=== PATIENT | female | born 2000 | race Caucasian/White ===

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

== ENCOUNTER 2019-10-26 20:22 | Emergency (ER) | payer SELFPAY ==
[2019-10-26 21:11] VITALS: BP 97/74
--- NOTE | 2019-10-26 21:29 | ER Document Report ---
HPI - HPI Time Seen by Provider: 10/26/19 21:07 Pain Level: 1 Context: Patient is a 19-year-old female that comes emergency department for chief complaint of COVID-19 exposure and a sore throat. She states that she was told today by her child's culinary chef that they tested positive for COVID-19, reportedly they were positive a couple of days ago and were tested a few days before that. Patient denies fever, cough, shortness of breath, congestion but she has started noticing an increasingly sore throat today. She denies abdominal pain, , or any other complaints. She takes no daily medications. She denies smoking, alcohol, recreational drugs. She denies any past medical history. - CONSTITUTIONAL Constitutional: DENIES: Fever, Chills - REPRODUCTIVE Reproductive: DENIES: : Past Medical History - General Information source: Patient - Social History Smoking Status: Never Smoker Frequency of alcohol use: None Drug Abuse: None Lives with: Family Family History: Reviewed & Not Pertinent Patient has homicidal ideation: No Surgical Hx: Negative - Immunizations Immunizations up to date: Yes Hx Diphtheria, Pertussis, Tetanus Vaccination: Yes Vertical Provider Document - CONSTITUTIONAL General Appearance: WD/WN, No Apparent Distress - INFECTION CONTROL TRAVEL OUTSIDE OF THE [place] IN LAST 30 DAYS: No - HEENT HEENT: Atraumatic, Normocephalic. negative: Normal ENT Exam - Normal ears, eyes, sinus exams. Pharyngeal erythema with tonsillitis slightly worse on the left, no evidence of peritonsillar abscess, patent airway, normal uvula. - NECK Neck: Lymphadenopathy-Left, Lymphadenopathy-Right - RESPIRATORY Respiratory: Breath Sounds Normal, No Respiratory Distress. negative: Wheezing - CARDIOVASCULAR Cardiovascular: Regular Rate, Regular Rhythm. negative: Tachycardia - GI/ABDOMEN Gastrointestinal: Abdomen Soft, Abdomen Non-Tender - BACK Back: Normal Inspection - MUSCULOSKELETAL/EXTREMETIES Musculoskeletal/Extremeties: MAEW, FROM, Non-Tender - NEURO Level of Consciousness: Awake, Alert, Appropriate Motor/Sensory: No Motor Deficit, No Sensory Deficit - DERM Integumentary: Warm, Dry, No Rash Course - Re-evaluation Re-evalutation: Blood pressure is 97 systolic, patient is very slim, I suspect this is normal for her. She is alert, talkative, well-appearing. She does have tonsillitis w orse on the left, anterior cervical adenopathy, however no other concerning findings. No evidence of peritonsillar abscess, no submandibular swelling, no nuchal rigidity, clear lungs, soft abdomen, unremarkable vital signs. Patient concerned of exposure to COVID-19, she was tested, strep test was performed and negative. Discussed with patient. Provided with Decadron for her lymphadenopathy and tonsillitis, culture is pending. Discussed details, quarantine, follow-up, return precautions. Patient states appreciation and agreement. Stable and well-appearing at time of discharge. - Vital Signs Vital signs: Temp Pulse Resp BP Pulse Ox 97.9 F 86 15 97/74 L 97 10/26/19 21:10 10/26/19 21:10 10/26/19 21:10 10/26/19 21:10 10/26/19 21:10 Discharge - Discharge Clinical Impression: Tonsillitis, Person under investigation for COVID-19 Pharyngitis Qualifiers: Pharyngitis/tonsillitis etiology: unspecified etiology Qualified Code(s): J02.9 - Acute pharyngitis, unspecified Condition: Stable Disposition: HOME, SELF-CARE Additional Instructions: Your strep test is negative. You most likely have a viral illness. You have been tested for COVID-19, you will be contacted with the results, please quarantine awaiting your results. You have been treated with Decadron to help with your symptoms, Tylenol, ibuprofen, etc. [id number] medications can also help. Drink plenty fluids and rest. Return for any concerning symptoms including difficulty breathing, vomiting, chest pain, spiking fevers, or any other concerning symptoms. As a person under investigation for COVID-19, the [place] Department of Health and Human Services (division on public health) advises you to adhere to the following guidance until your test results are reported to you. If your test result is positive, you will receive additional information from your provider and your local health department at that time. Remain at home until you are cleared by the health provider or public health authorities. Keep a log of visitors to your home, notify any visitors to your home of your isolation status. If you plan to move to a new address or leave the [facility], notify the local health department in your County. Call your Doctor or seek care if you have an urgent medical need. Before seeking medical care, call him to get instructions from the provider before arriving at the medical office, clinic, or hospital. Notify them that you are being tested for the virus (COVID-19) so that arrangements can be made, as necessary, to prevent transmission to others in the healthcare setting. Next, notify the local health department in your county. If a medical emergency arises and you need to call 911, inform the first responders that you are being tested for the virus that causes COVID-19. Next, notify the local health department in your county. Forms: Return to Work
[2019-10-26] MEDS ORDERED: DEXAMETHASONE SOD PHOS INJ 10 MG/1 ML VIAL IM ONE (23:18)
[2019-10-26] MEDS ORDERED: DEXAMETHASONE SOD PHOSPHATE INJ 4 MG/1 ML VIAL ONE (23:21)
== END 2019-10-26 23:45 | disposition home or self-care (01) ==
LOC: ER 20:22
DX: J03.90 Acute tonsillitis, unspecified (principal); Z20.828 Contact with and (suspected) exposure to other viral communicable diseases
CPT/HCPCS: 99284; 96372; 87070; 87880; 87635; J1100; C9803